=== PATIENT | female | born 1985 | race Caucasian/White ===

== ENCOUNTER 2022-03-14 13:11 | Outpatient (REF) | payer OTHER, SELFPAY ==
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
== END 2022-03-14 13:12 | disposition home or self-care (01) ==
LOC: HO.HMGCX 13:11
PROVIDERS: Visit Provider Physician Assistant
DX: M54.2 Cervicalgia (principal); M25.511 Pain in right shoulder; R07.81 Pleurodynia; V87.7XXA Person injured in collision between other specified motor vehicles (traffic), initial encounter
CPT/HCPCS: 71111; 72040; 73030

== ENCOUNTER 2022-03-14 17:14 | Emergency (ER) | payer OTHER, SELFPAY ==
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
[2022-03-14 17:39] VITALS: BP 159/86; PULSE 92; RESP 18; TEMP 36.4; O2SAT 99; BMI 34.3
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
[2022-03-14] MEDS: Ketorolac Tromethamine 15 MG/ML VIAL 30 MG IM (19:51)
[2022-03-14] MEDS: Lidocaine 4 % Patch ADH..PATCH 1 PATCH TRANSDERMA (19:52)
== END 2022-03-14 20:40 | disposition home or self-care (01) ==
PROVIDERS: Emergency Provider Internal Medicine
DX: R51.9 Headache, unspecified (principal); M25.511 Pain in right shoulder; S06.0X0A Concussion without loss of consciousness, initial encounter; S13.4XXA Sprain of ligaments of cervical spine, initial encounter; V43.62XA Car passenger injured in collision with other type car in traffic accident, initial encounter; Y93.89 Activity, other specified; Y92.414 Local residential or business street as the place of occurrence of the external cause; Y99.9 Unspecified external cause status
CPT/HCPCS: 70450; 72125; 96372; 99283; 99284; J1885